=== PATIENT | male | born 1995 | race African-American/Black ===

== ENCOUNTER 2018-08-17 10:41 | Emergency (ER) | payer SELFPAY ==
[~2018-08-17] VITALS: Ht 182.9 cm; Wt 77.0 kg
[~2018-08-17 10:41] MED LIST: ALBUTEROL; FLONAS; FLUT1DIS; IPRA21SP2; MONT10TA21
[2018-08-17 10:43] VITALS: BP 132/76
== END 2018-08-17 13:00 | disposition left against medical advice (07) ==
LOC: ER 11:48
DX: S01.511A Laceration without foreign body of lip, initial encounter (principal); J45.909 Unspecified asthma, uncomplicated; R51 Headache; Z53.21 Procedure and treatment not carried out due to patient leaving prior to being seen by health care provider; Y08.89XA Assault by other specified means, initial encounter; Y93.9 Activity, unspecified; Y92.89 Other specified places as the place of occurrence of the external cause; Y99.8 Other external cause status